=== PATIENT | female | born 1990 | race African-American/Black ===

== ENCOUNTER 2016-11-23 12:22 | Emergency (ER) | payer OTHER ==
[~2016-11-23] VITALS: Ht 167.6 cm; Wt 60.0 kg
[2016-11-23 12:32] VITALS: BP 11/66
[2016-11-23] MEDS ORDERED: BACITRACIN/POLYMYXIN B SULFATE OINT 15GM TOP ONE (14:00)
== END 2016-11-23 15:05 | disposition home or self-care (01) ==
LOC: ER 13:05
DX: S81.051A Open bite, right knee, initial encounter (principal); F17.210 Nicotine dependence, cigarettes, uncomplicated; Z91.013 Allergy to seafood; W54.0XXA Bitten by dog, initial encounter; Y92.89 Other specified places as the place of occurrence of the external cause
CPT/HCPCS: 99283

== ENCOUNTER 2019-08-21 15:51 | Emergency (ER) | payer OTHER ==
[~2019-08-21] VITALS: Ht 167.6 cm; Wt 62.0 kg
[2019-08-21] MEDS ORDERED: SODIUM CHLORIDE 0.9% 1,000 ML IV ONE (19:42)
[2019-08-21] MEDS ORDERED: ACETAMINOPHEN 325MG TABLET PO ONE (19:45)
[2019-08-21] MEDS ORDERED: ONDANSETRON HCL 4MG/2ML INJ IV ONE (19:45)
[2019-08-21 20:15] LABS: BASOPHILS % 0.8 % (0.0-2.0); EOSINOPHILS % 3.2 % (0.0-5.0); HEMATOCRIT. 35.8 % (36.0-48.0); HEMOGLOBIN. 12.2 g/dL (12.0-16.0); MEAN CORPUSCULAR VOLUME 91.3 fL (81.0-99.0); MEAN PLATELET VOLUME 7.4 fl (7.4-10.4); MONOCYTES % 7.9 % (2.0-8.0); NEUTROPHILS % 63.1 % (40.0-76.0); PLATELET 240 x1000/uL (130-400); RED BLOOD CELL COUNT 3.93 mill/uL (4.2-5.4); RED CELL DISTRIBUTION WIDTH 13.2 % (11.6-14.6)
[2019-08-21 20:27] LABS: CHLORIDE 104 mEq/L (98-107)
[2019-08-21 20:50] LABS: B-HCG QUANTITATIVE 90232 mIU/mL (<3)
[2019-08-22] VITALS: BP 110/59
== END 2019-08-22 00:01 | disposition home or self-care (01) ==
LOC: ER 16:00
DX: O21.1 Hyperemesis gravidarum with metabolic disturbance (principal); O26.891 Other specified pregnancy related conditions, first trimester; R51 Headache; O99.331 Smoking (tobacco) complicating pregnancy, first trimester; Z3A.10 10 weeks gestation of pregnancy; Z91.013 Allergy to seafood
CPT/HCPCS: 36415; 76801; 76817; 80053; 81025; 83690; 84702; 85025; 86850; 86900; 86901; 96361; 96374; 99284; 99406; J2405; J7030

== ENCOUNTER 2020-01-16 11:16 | Observation (INO) | payer OTHER ==
[~2020-01-16] VITALS: Ht 167.6 cm; Wt 68.0 kg
[2020-01-16] MEDS ORDERED: PNV1TABL76 PO (12:11)
[2020-01-16 12:38] LABS: CLARITY URINE CLEAR (CLEAR); COLOR URINE YELLOW (YELLOW); KETONES URINE NEGATIVE (NEGATIVE); LEUKOCYTE ESTERASE URINE 1+ (NEGATIVE); NITRITE URINE NEGATIVE (NEGATIVE); OCCULT BLOOD URINE NEGATIVE (NEGATIVE); PH URINE 8.5 (4.5-8.0); PROTEIN URINE TRACE (NEGATIVE); SPECIFIC GRAVITY URINE 1.023 (1.005-1.030)
[2020-01-16] MEDS ORDERED: CEFAZOLIN 2,000 MG in DEXT 5% WATER 100 ML IV NR (14:00)
[2020-01-16] MEDS ORDERED: LACTATED RINGERS 1,000 ML IV SCH (14:15)
== END 2020-01-16 14:50 | disposition home or self-care (01) ==
LOC: 8 EST LDRP 11:16
PROVIDERS: ADMIT Obstetrics & Gynecology; ATTEND Obstetrics & Gynecology
DX: O26.893 Other specified pregnancy related conditions, third trimester (principal); N89.8 Other specified noninflammatory disorders of vagina; O42.913 Preterm premature rupture of membranes, unspecified as to length of time between rupture and onset of labor, third trimester; Z3A.31 31 weeks gestation of pregnancy
CPT/HCPCS: 76805; 76818; 81003; 96365; 99281; G0378; J0690; J7060; 96360

== ENCOUNTER 2020-03-01 19:29 | Observation (INO) | payer SELFPAY ==
[~2020-03-01] VITALS: Ht 167.6 cm; Wt 68.0 kg
[~2020-03-01 19:29] MED LIST: PNV1TABL76 PO
[2020-03-01] MEDS ORDERED: PNV91TAB6 PO (20:19)
[2020-03-01] MEDS ORDERED: ACETAMINOPHEN 500MG TABLET PO NR (20:43)
== END 2020-03-01 21:57 | disposition home or self-care (01) ==
LOC: 8 EST LDRP 19:29
PROVIDERS: ADMIT Obstetrics & Gynecology; ATTEND Obstetrics & Gynecology
DX: O99.89 Other specified diseases and conditions complicating pregnancy, childbirth and the puerperium (principal); R51 Headache; M79.10 Myalgia, unspecified site; Z3A.38 38 weeks gestation of pregnancy
CPT/HCPCS: 99281; G0378